=== PATIENT | female | born 1990 | race Caucasian/White ===

== ENCOUNTER 2018-04-19 22:53 | Emergency (ER) | payer SELFPAY ==
[~2018-04-19] VITALS: Ht 160 cm; Wt 56.7 kg
[~2018-04-19 22:53] MED LIST: SPRI28TA PO
[2018-04-19 22:56] VITALS: BP 112/71; PULSE 97; RESP 16; TEMP 98.6; O2SAT 99
== END 2018-04-20 00:48 | disposition left against medical advice (07) ==
LOC: PHED 22:53
DX: M79.641 Pain in right hand (principal); Z53.21 Procedure and treatment not carried out due to patient leaving prior to being seen by health care provider
CPT/HCPCS: 99281